=== PATIENT | female | born 1960 | race Caucasian/White ===

== ENCOUNTER 2021-04-01 09:19 | Outpatient (CLI) | payer OTHER | END 2021-04-01 09:20 | disposition home or self-care (01) | LOC: BICMRI 09:19 | PROVIDERS: ATTEND Plastic Surgery | DX: Z08 Encounter for follow-up examination after completed treatment for malignant neoplasm (principal); Z85.3 Personal history of malignant neoplasm of breast; Z98.82 Breast implant status; I89.0 Lymphedema, not elsewhere classified | CPT/HCPCS: 77047 ==